=== PATIENT | female | born 1970 | race Caucasian/White ===

== ENCOUNTER 2017-05-13 08:48 | Emergency (ER) | payer OTHER ==
[~2017-05-13] VITALS: Wt 76.7 kg
[~2017-05-13 08:48] MED LIST: ANUSOL-HC25 MG R; BACTRIM DS 8001 TA1 PO; CLARITIN10 MG PO; DAYPRO600 M1 PO; FLEXERIL10 MG PO; HUMALOG 751 UNIT/0.0 SC; HUMALOG100 UNIT/2 SQ; HYDROCODONE BIT1 T11 PO; INVOKANA PO; JARDIANCE25 MG PO; K-TAB10 MEQ PO; KEFLEX500 MG PO; LEVEMIR100 U/ML SC; MACROBID100 M1 PO; MEDROL DOSEPAK4 MG PO; MOTRIN800 MG PO; Metformin Hydr500 MG PO; NORTRIPTYLINE10 MG PO; OSTERA TABLET1 EACH PO; PERCOCET 325 MG1 TA2 PO; PRAVACHOL40 MG PO; SYNTHROID0.15 MG PO; SYNTHROID0.175 MG PO; TOBRADEX 0.1%-0.5 ML OPH; TRESIBA FL100 UNIT/1 SQ; VICODIN ES 7501 TAB PO; VICTOZA6 MG/ML; VICTOZA6 MG/ML SC; ZOCOR10 MG PO; ZOLOFT100 MG PO; ZOLOFT50 MG PO; Zofran4 MG PO; [UNRECOGNIZED DRUG - OTHER]
[2017-05-13 09:08] VITALS: BP 122/86
[2017-05-13] MEDS ORDERED: CYCLOBENZAPRINE10 MG PO (11:06)
[2017-05-13] MEDS ORDERED: COLACE100 MG PO (11:06)
[2017-05-13] MEDS ORDERED: NAPROXEN500 M1 PO (11:06)
== END 2017-05-13 11:21 | disposition home or self-care (01) ==
LOC: ED 08:48
DX: K59.00 Constipation, unspecified (principal); M54.5 Low back pain; Z98.890 Other specified postprocedural states; Z88.6 Allergy status to analgesic agent; Z88.5 Allergy status to narcotic agent; Z79.899 Other long term (current) drug therapy; Z79.4 Long term (current) use of insulin

== ENCOUNTER 2018-07-02 10:14 | Inpatient (IN) | payer OTHER ==
[~2018-07-02] VITALS: Ht 172.7 cm; Wt 83.6 kg
--- NOTE | ~2018-07-02 | EKG ---
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
[2018-07-02 10:14] VITALS: BP 166/65
[~2018-07-02 10:14] MED LIST changes: +CHLORZOXAZONE500 M2 PO; +COLACE100 MG PO; +CYCLOBENZAPRINE10 MG PO; +NAPROSYN500 MG PO; +NAPROXEN500 M1 PO; +PREDNISONE20 M1 PO; +ROBAXIN500 M1 PO; +SYNTHROID,LEV175 MCG PO; -SYNTHROID0.15 MG PO
[2018-07-02 10:49] LABS: HEMATOCRIT 49.9 % (37.0-47.0); MEAN CELL VOLUME 89.7 fl (81.0-99.0); MEAN CORPUSCULAR HGB 28.8 pg (27.0-31.0); MEAN CORPUSCULAR HGB CONC 32.1 g/dl (33.0-37.0); MEAN PLATELET VOLUME 10.1 fl (9.6-12.3); PLATELET COUNT AUTOMATED 432 10*3/uL (130-400); RED BLOOD COUNT 5.56 10*6/uL (4.10-5.10); RED CELL DISTRI WIDTH 12.9 % (0-14.5); WHITE BLOOD COUNT 17.1 10*3/uL (4.8-10.8)
[2018-07-02 11:00] VITALS: BP 160/72
[2018-07-02 11:11] LABS: ALBUMIN 3.8 gm/dl (3.1-4.5); ALKALINE PHOSPHATASE 93 U/L (45-117); BUN 29 mg/dl (7-24); CHLORIDE 100 mmol/L (98-107); LIPASE 68 U/L (73-393); POTASSIUM 4.7 mmol/L (3.5-5.1); SGOT/AST 19 IU/L (3-35); SGPT/ALT 22 U/L (12-78); SODIUM 131 mmol/L (136-145); TOTAL PROTEIN 8.9 gm/dL (6.4-8.2)
[2018-07-02 11:15] LABS: TROPONIN I < 0.015 ng/ml (<0.045)
[2018-07-02 11:22] LABS: BURR CELLS FEW; PLATELET SUFFICIENCY HIGH (NORMAL); TOTAL CELLS COUNTED 100 #CELLS
[2018-07-02 11:26] LABS: BILIRUBIN NEGATIVE (NEGATIVE); BLOOD 2+ (NEGATIVE); CLARITY SL CLOUDY (CLEAR); COLOR YELLOW (YELLOW); GLUCOSE 3+ (NEGATIVE); KETONE 3+ (NEGATIVE); LEUKO ESTERASE NEGATIVE (NEGATIVE); NITRITE NEGATIVE (NEGATIVE); SPECIFIC GRAVITY >= 1.030 (1.005-1.030); UROBILINOGEN 0.2 E.U./dl (0.2-1.0)
[2018-07-02 11:43] LABS: ACT PARTIAL THROMBO TIME 45.6 SECONDS (20.8-31.5)
[2018-07-02 11:47] LABS: YEAST 2+
[2018-07-02 11:58] LABS: ABG HCO3 3.2 mmol/l (22-26); ABG O2 SATURATION 98.4 % (95-97); ARTERIAL BLOOD GAS PCO2 15.4 mmHg (35-45)
[2018-07-02 12:06] VITALS: BP 105/50; BP 164/70
[2018-07-02 12:07] LABS: ARTERIAL BLOOD GAS PH 6.943 (7.35-7.45)
[2018-07-02 13:12] VITALS: BP 144/73
--- NOTE | 2018-07-02 13:12 | NUR ---
A 47yr old female, admitted to ICCU, under the services of SPENCER Quintero DO with a diagnosis of DKA,PNEUMONITIS,LESIA,INFLUENZA A,SEPSIS. Chief complaint is Nausea and vomiting x 2 days, diagnosed with Flu A yesterday. Patient arrived via stretcher from ER. Monitor applied. Initial assessment completed. Vital signs taken and recorded. See assessment for past medical history, medications and allergies. Patient and/or family oriented to unit. [facility] ICCU visitation policy reviewed. Clothing/patient valuable form completed. Patient had 2 liters 0.9% Saline, Rocephin, Zithromax,Toradol, Tylenol and Zofran in ER. Acetone was positive with Anion Gap of 25. IV Humulin R 10 units given in ER. Dr Pizano has entered orders. RACHEL DAVALOS L
[2018-07-02] MEDS ORDERED: CO Q10100 MG PO (13:46)
[2018-07-02] MEDS ORDERED: INVOKAMET 50-51 EACH PO (13:47)
[2018-07-02] MEDS ORDERED: ATORVASTATIN CA20 M1 PO (13:47)
[2018-07-02] MEDS ORDERED: FISH OIL 1,0001 EAC4 PO (13:48)
[2018-07-02] MEDS ORDERED: VITAMIN D350000 UNIT PO (13:49)
[2018-07-02 13:52] LABS: ABG HCO3 3.1 mmol/l (22-26); ABG O2 SATURATION 98.2 % (95-97); ARTERIAL BLOOD GAS PCO2 14.6 mmHg (35-45)
[2018-07-02 13:55] LABS: ABG BASE EXCESS -29.7 mmol/L (-2.0-2.0); ARTERIAL BLOOD GAS PH 6.956 (7.35-7.45)
[2018-07-02 14:11] LABS: BUN 29 mg/dl (7-24); CHLORIDE 108 mmol/L (98-107); CREATININE 1.14 mg/dL (0.55-1.02); POTASSIUM 4.3 mmol/L (3.5-5.1); SODIUM 137 mmol/L (136-145)
--- NOTE | 2018-07-02 14:27 | NUR ---
IV FLUIDS WITH BICARB INITIATED AT 150/HR PER ORDER. BSBS 268. INSULIN DRIP STARTED AT 0.1U/KG/HR WHICH IS 8 UNITS/HR. PT IS RESTING EASILY WITH HER FACE COVERED WITH COOL CLOTH. DR WALLS WAS PRESENT IN ICCU/IMMEDIATELY AWARE WHEN CRITICAL VALUE PH OF 6.956 RECEIVED.
--- NOTE | 2018-07-02 15:07 | NUR ---
INSULIN DRIP INCREASED BY 1UNIT/HR TO 9 UNITS/HR FOR BSBS >150. NO EMESIS SINCE ADMISSION.
[2018-07-02 16:00] VITALS: BP 135/67
--- NOTE | 2018-07-02 17:15 | NUR ---
INSULIN DRIP DECREASED BY 50% TO 4UNITS/HR UNDER DIRECTION OF DR WALLS.
--- NOTE | 2018-07-02 17:58 | NUR ---
INSULIN DRIP TO 1 UNIT/HR FOR BSBS OF 89. DR WALLS AWARE. PT DENIES NEEDING ANYTHING FOR NAUSEA.
[2018-07-02 18:07] LABS: VENOUS BLOOD GAS O2 SAT 89.4 % (40-85); VENOUS PH 7.068 (7.32-7.43)
[2018-07-02 18:41] LABS: BUN 26 mg/dl (7-24); CHLORIDE 111 mmol/L (98-107); CREATININE 0.99 mg/dL (0.55-1.02); PHOSPHOROUS 2.6 mg/dL (2.5-4.9); POTASSIUM 3.8 mmol/L (3.5-5.1); SODIUM 141 mmol/L (136-145)
--- NOTE | 2018-07-02 19:21 | NUR ---
PT ATE ONE DIET JELLO AND A FEW BITES OF CHICKEN NOODLE SOUP, THEN CALLED ME INTO THE ROOM, MOANING/CRYING SAYING SHE'S NAUSTEATE. IV MARCEL GIVEN.
[2018-07-02 20:00] VITALS: BP 120/75
[2018-07-02 21:55] LABS: BUN 23 mg/dl (7-24); CHLORIDE 112 mmol/L (98-107); SODIUM 139 mmol/L (136-145)
[2018-07-02 22:01] LABS: POTASSIUM 4.9 mmol/L (3.5-5.1)
--- NOTE | 2018-07-02 23:59 | NUR ---
PATIENT GIVEN ONE TIME DOSE OF DILAUDID FOR BACK PAIN AND ALL OVER BODY ACHES. PATIENT HAS BEEN LAYING IN THE BED MOANING . WHEN ASKED WHAT WAS WRONG SHE SAID HER BACK HURT REAL BAD. DILAUDID THAT WAS GIVEN EARLIER WAS EFFECTIVE SO MORE GIVEN THIS TIME PATIENT IS RESTING NOW.
[2018-07-03] VITALS: BP 100/49
[2018-07-03 02:28] LABS: ABG BASE EXCESS -22.9 mmol/L (-2.0-2.0); ABG HCO3 5.9 mmol/l (22-26); ABG O2 SATURATION 98.7 % (95-97); ARTERIAL BLOOD GAS PCO2 19.6 mmHg (35-45)
[2018-07-03 02:37] LABS: ARTERIAL BLOOD GAS PH 7.11 (7.35-7.45)
[2018-07-03 03:09] LABS: BUN 20 mg/dl (7-24); CHLORIDE 110 mmol/L (98-107); CREATININE 1.13 mg/dL (0.55-1.02); POTASSIUM 4.7 mmol/L (3.5-5.1); SODIUM 138 mmol/L (136-145)
[2018-07-03 03:59] VITALS: BP 128/66
[2018-07-03 06:24] LABS: ALBUMIN 3.3 gm/dl (3.1-4.5); BUN 17 mg/dl (7-24); CHLORIDE 110 mmol/L (98-107); PHOSPHOROUS 1.7 mg/dL (2.5-4.9); POTASSIUM 3.9 mmol/L (3.5-5.1); SGOT/AST 16 IU/L (3-35); SODIUM 137 mmol/L (136-145)
[2018-07-03 06:25] LABS: ACT PARTIAL THROMBO TIME 30.3 SECONDS (20.8-31.5); INTERNATIONAL NORM RATIO 0.9 (2.0-3.5)
[2018-07-03 06:30] LABS: ALKALINE PHOSPHATASE 72 U/L (45-117); CHOLESTEROL 220 mg/dL (<200); CREATININE 1.06 mg/dL (0.55-1.02); HDL CHOLESTEROL 33 mg/dl (40-60); LDL CHOLESTEROL 135 mg/dL (9-159); SGPT/ALT 14 U/L (12-78); THYROID STIM HORMONE (HS) 0.695 uIU/ml (0.358-4.75); TOTAL PROTEIN 7.7 gm/dL (6.4-8.2); TRIGLYCERIDES 262 mg/dl (<150); VLDL CHOLESTEROL 52 mg/dL (6-40)
[2018-07-03 06:40] LABS: BASO # 0.1 10*3/uL (0.0-0.1); BASO % 0.7 % (0.0-1.0); HEMATOCRIT 44.2 % (37.0-47.0); HEMOGLOBIN 14.8 g/dl (12.0-16.0); LYMPH # 1.9 10*3/uL (1.3-4.4); LYMPH % 12.6 % (27.0-41.0); MEAN CELL VOLUME 87.2 fl (81.0-99.0); MEAN CORPUSCULAR HGB 29.2 pg (27.0-31.0); MEAN CORPUSCULAR HGB CONC 33.5 g/dl (33.0-37.0); MEAN PLATELET VOLUME 9.8 fl (9.6-12.3); MONO # 1.4 10*3/uL (0.1-1.0); MONO % 9.2 % (3.0-9.0); NEUT # 10.4 10*3/uL (2.3-7.9); NEUT % 68.4 % (47.0-73.0); RED BLOOD COUNT 5.07 10*6/uL (4.10-5.10); RED CELL DISTRI WIDTH 13.4 % (0-14.5); WHITE BLOOD COUNT 15.2 10*3/uL (4.8-10.8)
[2018-07-03 06:41] LABS: PLATELET COUNT AUTOMATED 319 10*3/uL (130-400)
--- NOTE | 2018-07-03 07:12 | NUR ---
Shift chart check completed.24 HR chart check completed.
[2018-07-03 07:58] LABS: TOTAL CELLS COUNTED 100 #CELLS
[2018-07-03 07:59] LABS: PLATELET SUFFICIENCY NORMAL (NORMAL)
[2018-07-03 08:00] VITALS: BP 118/80
[2018-07-03 08:51] LABS: VITAMIN D, 25-HYDROXY 23.9 ng/mL (30-100)
--- NOTE | 2018-07-03 09:00 | NUR ---
Rn Invasive in to talk to patient. Patient states lives at home with her sister and children. There are "lots" steps in the home. Physician: Dr. Soledad Camacho Pharmacy: [facility] Home health services: none Patient's level of ADLs: INDEPENDENT Patient has working utilities: yes DME: none Follow-up physician's appointment after d/c: will be made by the hospitalist nurse director upon discharge Does patient want to access PORTAL?: no Discharge plan discussed with patient. She lives at home with her sister and children. She is independent in her ADLs and ambulation. Discussed home health care services and she denies any home needs at this time. When medically stable she will be discharged to home. SHAMEKA PAIGE
[2018-07-03 10:17] LABS: BUN 15 mg/dl (7-24); CHLORIDE 114 mmol/L (98-107); CREATININE 0.93 mg/dL (0.55-1.02); POTASSIUM 4.5 mmol/L (3.5-5.1); SODIUM 137 mmol/L (136-145)
--- NOTE | 2018-07-03 10:33 | NUR ---
NORCO FOR GENERALIZED ACHES/PAIN. TAKING POPSICLE.
--- NOTE | 2018-07-03 10:58 | NUR ---
ON ASSESSMENT THIS AM PT ORIENTED, BUT LISTLESS. IV FLUIDS CONTINUED. KPHOS SUPPLEMENT WAS ADDED. INSULIN DRIP AT 3 UNITS/HR. BSBS HOURLY HAVE CONTINUED. SHE HAS NOT HAD ANY EMESIS THIS SHIFT "BUT I'M AFRAID TO DRINK MUCH". SHE HAS TAKEN AND RETAINED A POPSICLE. SHE GETS UP AND DOWN TO BSC TO VOID. HER IV IN RT UPPER ARM HAS INFILTRATED AND BEEN REMOVED. SEE ALL APPROPRIATE INTERVENTIONS.
--- NOTE | 2018-07-03 11:20 | NUR ---
RESTING QUIETLY, NO MOANING, STILL HAS A COOL CLOTH ON HER FOREHEAD SINCE EARLIER NORCO. HER FACE FLUSHED. DID CHECK A RECTAL TEMP 99.0.
--- NOTE | 2018-07-03 13:12 | NUR ---
PT HAS TAKEN AND RETAINED ANOTHER 1/2 POPSICLE. SHE DECLINES WANTING TO TRY ANYTHING ELSE TO EAT.
--- NOTE | 2018-07-03 14:22 | NUR ---
DR YANES HAS VISITED. INSULIN DRIP CONTINUES AT 3UNITS/HR. NO EMESIS THIS SHIFT.
[2018-07-03 14:48] LABS: BUN 13 mg/dl (7-24); CHLORIDE 113 mmol/L (98-107); CREATININE 0.88 mg/dL (0.55-1.02); POTASSIUM 3.8 mmol/L (3.5-5.1); SODIUM 141 mmol/L (136-145)
--- NOTE | 2018-07-03 15:20 | NUR ---
INSULIN DRIP DECREASED TO 2 UNITS/HR FOR BSBS OF 127. DR EDGAR AWARE. OFFERED PT MORE POPSICLES, ANYTHING ELSE, BUT SHE DECLINES.
[2018-07-03 16:00] VITALS: BP 111/66
[2018-07-03 18:54] LABS: BUN 12 mg/dl (7-24); CHLORIDE 114 mmol/L (98-107); CREATININE 0.91 mg/dL (0.55-1.02); POTASSIUM 3.6 mmol/L (3.5-5.1); SODIUM 142 mmol/L (136-145)
[2018-07-03 20:00] VITALS: BP 121/70
[2018-07-03 22:54] VITALS: BP 117/68
--- NOTE | 2018-07-03 22:54 | NUR ---
A 47, admitted to ICCU, under the services of SPENCER Quintero DO with a diagnosis of SUICIDE ATTEMPT BY OTHER PSYCHOTROPIC DRUGS OVERDOSE INTENTIAL. Chief complaint is WANTS TO . Patient arrived via wheel chair from ER. Monitor applied. Initial assessment completed. Vital signs taken and recorded. SPENCER QUINTERO DO notified of admission to the unit. Orders received. See assessment for past medical history, medications and allergies. Patient and/or family oriented to unit. [facility] ICCU visitation policy reviewed. Clothing/patient valuable form completed. DAYNE MIKE
[2018-07-03 23:15] LABS: BUN 11 mg/dl (7-24); CHLORIDE 115 mmol/L (98-107); CREATININE 0.81 mg/dL (0.55-1.02); POTASSIUM 4.4 mmol/L (3.5-5.1); SODIUM 142 mmol/L (136-145)
--- NOTE | 2018-07-04 | NUR ---
Patient resting quietly with no c/o discomfort. Respirations easy and regular. Vital signs stable. No overt distress. MIKHAIL PICKETT
[2018-07-04 03:11] LABS: BUN 9 mg/dl (7-24); CHLORIDE 114 mmol/L (98-107); CREATININE 0.74 mg/dL (0.55-1.02); SODIUM 143 mmol/L (136-145)
[2018-07-04 03:12] LABS: POTASSIUM 3.3 mmol/L (3.5-5.1)
[2018-07-04 04:00] VITALS: BP 115/70
--- NOTE | 2018-07-04 04:06 | NUR ---
24 HR chart check completed.
--- NOTE | 2018-07-04 04:07 | NUR ---
Patient resting quietly with no c/o discomfort. Respirations easy and regular. Vital signs stable. No overt distress. MIKHAIL PICKETT
[2018-07-04 06:08] LABS: BUN 9 mg/dl (7-24); CHLORIDE 113 mmol/L (98-107); POTASSIUM 3.4 mmol/L (3.5-5.1); SODIUM 143 mmol/L (136-145)
[2018-07-04 06:19] LABS: PHOSPHOROUS 0.8 mg/dL (2.5-4.9)
[2018-07-04 06:32] LABS: MEAN CORPUSCULAR HGB CONC 33.5 g/dl (33.0-37.0); MEAN PLATELET VOLUME 9.7 fl (9.6-12.3); PLATELET COUNT AUTOMATED 241 10*3/uL (130-400); RED BLOOD COUNT 4.53 10*6/uL (4.10-5.10); RED CELL DISTRI WIDTH 13.7 % (0-14.5)
[2018-07-04 06:37] LABS: HEMATOCRIT 37.9 % (37.0-47.0); HEMOGLOBIN 12.7 g/dl (12.0-16.0); MEAN CELL VOLUME 83.7 fl (81.0-99.0)
[2018-07-04 07:36] LABS: BURR CELLS FEW; PLATELET SUFFICIENCY NORMAL (NORMAL); TOTAL CELLS COUNTED 100 #CELLS
[2018-07-04 08:00] VITALS: BP 112/76
--- NOTE | 2018-07-04 08:15 | NUR ---
ZOFRAN GIVEN PER PT REQUEST FOR NAUSEA. CALL LIGHT WITHIN REACH. WILL CONTINUE TO MONITOR AND REASSESS.
--- NOTE | 2018-07-04 09:00 | NUR ---
DR. WINSTON IN TO SEE PATIENT AND DISCUSS PLAN OF CARE.
--- NOTE | 2018-07-04 09:15 | NUR ---
MEDICATION EFFECTIVE. PATIENT REPORTS NO LONGER FEELING NAUSEOUS AT THIS TIME.
--- NOTE | 2018-07-04 11:40 | NUR ---
SPOKE WITH DR. WINSTON ABOUT INSULIN DRIP NOT HAVING A TITRATION ORDER SET. PATIENT HYPERGLYCEMIC AFTER TWO CONSECUTIVE BLOOD GLUCOSE CHECKS. ORDERS RECEIVED.
[2018-07-04 12:00] VITALS: BP 124/75
[2018-07-04 15:00] LABS: BUN 9 mg/dl (7-24); CHLORIDE 112 mmol/L (98-107); CREATININE 0.69 mg/dL (0.55-1.02); PHOSPHOROUS 3.4 mg/dL (2.5-4.9); POTASSIUM 3.9 mmol/L (3.5-5.1); SODIUM 141 mmol/L (136-145)
--- NOTE | 2018-07-04 15:11 | NUR ---
spoke with dr. friedman regarding glucose management. orders received.
[2018-07-04 16:00] VITALS: BP 115/49
--- NOTE | 2018-07-04 17:30 | NUR ---
INSULIN DRIP DISCONTINUED AT THIS TIME.
[2018-07-04 20:00] VITALS: BP 129/63
--- NOTE | 2018-07-04 20:07 | NUR ---
PT. RESTING IN BED WATCHING TV. STATES SHE FEELS "MUCH" BETTER. HEP LOCK IN RA AND MARTY ASYMPT. LUNGS CLEAR BILAT, PULSE OX 97% ON RA. ABDOMEN SOFAT ,NONDISTENDED AND NORMO. TRACE BLE EDEMA. KNEE HIGH LM HOSE ON BILAT. RESP. EASY IAND REG ,NO DISTRESS. UP TO RR AD KATY, AMBULATORY IN ROOM, GAIT STEADY. LILA TOLEDO RN
--- NOTE | 2018-07-04 20:53 | NUR ---
PT. REFUSED TO BE SET UP FOR A BATH THIS EVENING, WANTS TO WAIT UNTIL TOMORROW AM.
[2018-07-05] VITALS: BP 127/71
--- NOTE | 2018-07-05 00:21 | NUR ---
NORCO GIVEN AT 0000 FOR COMPLAINTS OF LEG CRAMPS AND INABILILTY TO SLEEP. CURRENTLY SLEEPING, NORCO EFFECTIVE. LILA TOLEDO RN
[2018-07-05 04:00] VITALS: BP 124/60
--- NOTE | 2018-07-05 04:38 | NUR ---
24 HR chart check completed.
[2018-07-05 06:16] LABS: BASO % 0.6 % (0.0-1.0); EOS % 0.4 % (1.0-4.0); HEMATOCRIT 37.1 % (37.0-47.0); HEMOGLOBIN 12.8 g/dl (12.0-16.0); LYMPH # 2.9 10*3/uL (1.3-4.4); MEAN CELL VOLUME 83.9 fl (81.0-99.0); MEAN CORPUSCULAR HGB CONC 34.5 g/dl (33.0-37.0); MEAN PLATELET VOLUME 9.2 fl (9.6-12.3); MONO # 0.6 10*3/uL (0.1-1.0); MONO % 12.2 % (3.0-9.0); NEUT # 1.2 10*3/uL (2.3-7.9); NEUT % 24.1 % (47.0-73.0); PLATELET COUNT AUTOMATED 204 10*3/uL (130-400); RED BLOOD COUNT 4.42 10*6/uL (4.10-5.10); RED CELL DISTRI WIDTH 13.2 % (0-14.5); WHITE BLOOD COUNT 4.8 10*3/uL (4.8-10.8)
[2018-07-05 06:28] LABS: BUN 9 mg/dl (7-24); CHLORIDE 106 mmol/L (98-107); CREATININE 0.45 mg/dL (0.55-1.02); PHOSPHOROUS 2.5 mg/dL (2.5-4.9); POTASSIUM 3.8 mmol/L (3.5-5.1); SODIUM 142 mmol/L (136-145)
[2018-07-05 08:00] VITALS: BP 109/73
--- NOTE | 2018-07-05 08:34 | NUR ---
Awakened for VS. States. " I feel so much better, but I didn't get any sleep last night , that beeping " . Discussed possible discharge.
--- NOTE | 2018-07-05 10:43 | NUR ---
Removing monitor frequently for trips to the BR.. No c/o.
[2018-07-05] MEDS ORDERED: TRESIBA FL100 UNIT/1 SQ (11:08)
[2018-07-05] MEDS ORDERED: TAMIFLU 75MG CA75 MG PO (11:10)
--- NOTE | 2018-07-05 13:19 | NUR ---
Dr. Rae in early AM. Order for discharge recieved. Took lunch well. HL x 2 Removed. Discharge instruction given , Voiced understanding, Discharged to home.
== END 2018-07-05 13:19 | disposition home or self-care (01) | DRG 871 ==
LOC: ED 10:14 → ICCU 12:00 → EDHOLD 12:00 → ICCU 12:21
PROVIDERS: Internal Medicine; Nurse Practitioner Family; Student in an Organized Health Care Education/Training Program; ADMIT Internal Medicine
DX: A41.9 Sepsis, unspecified organism (principal); E11.10 Type 2 diabetes mellitus with ketoacidosis without coma; N17.0 Acute kidney failure with tubular necrosis; J10.00 Influenza due to other identified influenza virus with unspecified type of pneumonia; E03.9 Hypothyroidism, unspecified; M54.30 Sciatica, unspecified side; J10.1 Influenza due to other identified influenza virus with other respiratory manifestations; E83.41 Hypermagnesemia; R80.0 Isolated proteinuria; R82.4 Acetonuria; R31.21 Asymptomatic microscopic hematuria; E83.39 Other disorders of phosphorus metabolism; E66.3 Overweight; E78.5 Hyperlipidemia, unspecified; F32.9 Major depressive disorder, single episode, unspecified; R65.20 Severe sepsis without septic shock; E83.51 Hypocalcemia; Z98.891 History of uterine scar from previous surgery; Z82.49 Family history of ischemic heart disease and other diseases of the circulatory system; Z83.3 Family history of diabetes mellitus; Z79.84 Long term (current) use of oral hypoglycemic drugs; Z79.4 Long term (current) use of insulin; Z68.28 Body mass index [BMI] 28.0-28.9, adult

== ENCOUNTER → 2019-01-06 | Outpatient (CLI) | payer OTHER ==
[~2019-01-06] MED LIST changes: +ATORVASTATIN CA20 M1 PO; +CO Q10100 MG PO; +FISH OIL 1,0001 EAC4 PO; +INVOKAMET 50-51 EACH PO; +TAMIFLU 75MG CA75 MG PO; +VITAMIN D350000 UNIT PO
[2019-01-06 08:31] LABS: ALBUMIN 3.9 gm/dl (3.1-4.5); BUN 11 mg/dl (7-24); CHLORIDE 105 mmol/L (98-107); CHOLESTEROL 263 mg/dL (<200); CREATININE 0.71 mg/dL (0.55-1.02); SGOT/AST 11 IU/L (3-35); SODIUM 137 mmol/L (136-145); TRIGLYCERIDES 134 mg/dl (<150); VLDL CHOLESTEROL 27 mg/dL (6-40)
[2019-01-06 08:38] LABS: ALKALINE PHOSPHATASE 60 U/L (45-117); FREE T4 1.05 ng/dl (0.76-1.46); HDL CHOLESTEROL 46 mg/dl (40-60); LDL CHOLESTEROL 190 mg/dL (9-159); SGPT/ALT 15 U/L (12-78); TOTAL PROTEIN 7.8 gm/dL (6.4-8.2)
[2019-01-07 11:07] LABS: CREATININE,URINE 69.6 mg/dL (Not Estab.); MICRO ALBUMIN/CRE RATIO <4.3 (0.0-30.0)
[2019-01-07 15:08] LABS: t-TRANSGLUTAMINASE (tTG) IGA <2 U/mL (0-3)
== END | disposition home or self-care (01) ==
LOC: LAB 07:33
PROVIDERS: Internal Medicine Endocrinology, Diabetes & Metabolism
DX: E55.9 Vitamin D deficiency, unspecified (principal); E03.9 Hypothyroidism, unspecified; E13.9 Other specified diabetes mellitus without complications; R14.0 Abdominal distension (gaseous)

== ENCOUNTER 2019-01-14 19:20 | Emergency (ER) | payer OTHER ==
[~2019-01-14] VITALS: Ht 172.7 cm; Wt 86.2 kg
[2019-01-14 19:23] VITALS: BP 119/75
[2019-01-14] MEDS ORDERED: CEFADROXIL500 M1 PO (20:09)
== END 2019-01-14 20:52 | disposition home or self-care (01) ==
LOC: ED 19:20
DX: T25.212A Burn of second degree of left ankle, initial encounter (principal); E11.9 Type 2 diabetes mellitus without complications; Z79.4 Long term (current) use of insulin; Z79.899 Other long term (current) drug therapy; X10.1XXA Contact with hot food, initial encounter; Y93.89 Activity, other specified; Y92.89 Other specified places as the place of occurrence of the external cause; Y99.8 Other external cause status

== ENCOUNTER → 2019-03-23 | Outpatient (CLI) | payer OTHER ==
[~2019-03-23] MED LIST changes: +CEFADROXIL500 M1 PO
== END | disposition home or self-care (01) ==
LOC: RAD 14:47
DX: M51.36 Other intervertebral disc degeneration, lumbar region (principal); M75.42 Impingement syndrome of left shoulder

== ENCOUNTER → 2019-06-08 | Outpatient (CLI) | payer OTHER | END | disposition home or self-care (01) | LOC: MAMMO 15:30 | DX: Z12.31 Encounter for screening mammogram for malignant neoplasm of breast (principal); F41.9 Anxiety disorder, unspecified ==

== ENCOUNTER → 2020-03-02 | Outpatient (CLI) | payer OTHER ==
[~2020-03-02] MED LIST changes: +ASPIRIN ADULT L81 M1 PO; +BRILINTA90 M1 PO; +CARVEDILOL6.25 MG PO; +HUMALOG PUMP; +LISINOPRIL5 MG PO; +LORAZEPAM0.5 MG PO; +NITROFURANTOIN100 M9 PO; +OZEMPIC1 MG/0.75 SQ; -SYNTHROID,LEV175 MCG PO; +Synthroid,Lev150 MCG PO
== END | disposition home or self-care (01) ==
LOC: CARD 04:50
PROVIDERS: ATTEND Physician Assistant
DX: R07.9 Chest pain, unspecified (principal)

== ENCOUNTER 2020-03-22 11:21 | Emergency (ER) | payer OTHER ==
[~2020-03-22] VITALS: Ht 172.7 cm; Wt 95.3 kg
[~2020-03-22 11:21] MED LIST changes: -ASPIRIN ADULT L81 M1 PO; -BRILINTA90 M1 PO; -CARVEDILOL6.25 MG PO; -LISINOPRIL5 MG PO; -NITROFURANTOIN100 M9 PO
[2020-03-22] MEDS ORDERED: CARVEDILOL6.25 MG PO (11:41)
[2020-03-22] MEDS ORDERED: ASPIRIN ADULT L81 M1 PO (11:41)
[2020-03-22] MEDS ORDERED: BRILINTA90 M1 PO (11:41)
[2020-03-22] MEDS ORDERED: NITROFURANTOIN100 M9 PO (11:42)
[2020-03-22] MEDS ORDERED: LISINOPRIL5 MG PO (11:42)
[2020-03-22 11:52] LABS: BASO % 0.4 % (0.0-1.0); EOS # 0.2 10*3/uL (0.0-0.4); HEMATOCRIT 40.1 % (37.0-47.0); LYMPH # 2.4 10*3/uL (1.3-4.4); LYMPH % 21.7 % (27.0-41.0); MEAN CELL VOLUME 85.5 fl (81.0-99.0); MEAN CORPUSCULAR HGB CONC 33.9 g/dl (33.0-37.0); MEAN PLATELET VOLUME 10.1 fl (9.6-12.3); MONO % 8.4 % (3.0-9.0); NEUT # 7.5 10*3/uL (2.3-7.9); NEUT % 66.8 % (47.0-73.0); PLATELET COUNT AUTOMATED 293 10*3/uL (130-400); RED BLOOD COUNT 4.69 10*6/uL (4.10-5.10); WHITE BLOOD COUNT 11.3 10*3/uL (4.8-10.8)
[2020-03-22 12:03] LABS: ACT PARTIAL THROMBO TIME 25.1 SECONDS (20.0-32.1); INTERNATIONAL NORM RATIO 0.9 (2.0-3.5)
[2020-03-22 12:11] LABS: ALBUMIN 3.5 gm/dl (3.1-4.5); ALKALINE PHOSPHATASE 59 U/L (45-117); BUN 15 mg/dl (7-24); CHLORIDE 106 mmol/L (98-107); CREATININE 0.61 mg/dL (0.55-1.02); POTASSIUM 4.2 mmol/L (3.5-5.1); SGOT/AST 22 IU/L (3-35); SGPT/ALT 16 U/L (12-78); SODIUM 137 mmol/L (136-145); TOTAL PROTEIN 7.3 gm/dL (6.4-8.2)
[2020-03-22 12:17] LABS: TROPONIN I < 0.015 ng/ml (<0.045)
[2020-03-22 13:14] VITALS: BP 132/44
== END 2020-03-22 15:40 | disposition home or self-care (01) ==
LOC: ED 11:21
PROVIDERS: Emergency Medicine
DX: R07.9 Chest pain, unspecified (principal); Z79.899 Other long term (current) drug therapy

== ENCOUNTER → 2020-09-14 | Outpatient (CLI) | payer OTHER ==
[~2020-09-14] MED LIST changes: +ASPIRIN ADULT L81 M1 PO; +BRILINTA90 M1 PO; +CARVEDILOL6.25 MG PO; +LISINOPRIL5 MG PO; +NITROFURANTOIN100 M9 PO
== END | disposition home or self-care (01) ==
LOC: CT 01:47
PROVIDERS: ATTEND Internal Medicine Endocrinology, Diabetes & Metabolism
DX: E27.9 Disorder of adrenal gland, unspecified (principal); E13.9 Other specified diabetes mellitus without complications; I25.10 Atherosclerotic heart disease of native coronary artery without angina pectoris

== ENCOUNTER 2021-01-04 17:01 | Emergency (ER) | payer OTHER ==
[~2021-01-04] VITALS: Ht 170.1 cm; Wt 93.4 kg
[2021-01-04 17:18] VITALS: BP 135/78
[2021-01-04 17:53] LABS: BASO % 0.4 % (0.0-1.0); EOS # 0.2 10*3/uL (0.0-0.4); EOS % 2.2 % (1.0-4.0); HEMATOCRIT 39.6 % (37.0-47.0); LYMPH # 3.4 10*3/uL (1.3-4.4); LYMPH % 32.3 % (27.0-41.0); MEAN CELL VOLUME 84.1 fl (81.0-99.0); MEAN CORPUSCULAR HGB 28.9 pg (27.0-31.0); MEAN CORPUSCULAR HGB CONC 34.3 g/dl (33.0-37.0); MEAN PLATELET VOLUME 10.4 fl (9.6-12.3); MONO # 1.1 10*3/uL (0.1-1.0); MONO % 10.8 % (3.0-9.0); NEUT # 5.7 10*3/uL (2.3-7.9); NEUT % 53.7 % (47.0-73.0); PLATELET COUNT AUTOMATED 293 10*3/uL (130-400); RED BLOOD COUNT 4.71 10*6/uL (4.10-5.10); RED CELL DISTRI WIDTH 12.4 % (0-14.5); WHITE BLOOD COUNT 10.5 10*3/uL (4.8-10.8)
[2021-01-04 18:14] LABS: ALBUMIN 3.2 gm/dl (3.1-4.5); ALKALINE PHOSPHATASE 62 U/L (45-117); BUN 13 mg/dl (7-24); CHLORIDE 107 mmol/L (98-107); CREATININE 0.62 mg/dL (0.55-1.02); POTASSIUM 3.7 mmol/L (3.5-5.1); SGOT/AST 9 IU/L (3-35); SGPT/ALT 19 U/L (12-78); SODIUM 139 mmol/L (136-145); TOTAL PROTEIN 7.1 gm/dL (6.4-8.2)
[2021-01-04 18:15] LABS: TROPONIN I < 0.015 ng/ml (<0.045)
== END 2021-01-04 19:24 | disposition home or self-care (01) ==
LOC: ED 17:01
PROVIDERS: Student in an Organized Health Care Education/Training Program
DX: H53.8 Other visual disturbances (principal); R20.0 Anesthesia of skin; Z79.899 Other long term (current) drug therapy; Z79.82 Long term (current) use of aspirin

== ENCOUNTER → 2021-10-24 | Outpatient (CLI) | payer OTHER ==
[2021-10-24 17:38] LABS: HEMATOCRIT 43.7 % (37.0-47.0); MEAN CELL VOLUME 85.9 fl (81.0-99.0); MEAN CORPUSCULAR HGB 27.5 pg (27.0-31.0); MEAN PLATELET VOLUME 10.7 fl (9.6-12.3); RED BLOOD COUNT 5.09 10*6/uL (4.10-5.10); RED CELL DISTRI WIDTH 12.9 % (0-14.5); WHITE BLOOD COUNT 10.5 10*3/uL (4.8-10.8)
[2021-10-24 17:55] LABS: ALKALINE PHOSPHATASE 48 U/L (45-117); BUN 9 mg/dl (7-24); CHLORIDE 109 mmol/L (98-107); CHOLESTEROL 148 mg/dL (<200); CREATININE 0.69 mg/dL (0.55-1.02); LDL CHOLESTEROL 76 mg/dL (9-159); POTASSIUM 3.9 mmol/L (3.5-5.1); SGOT/AST 10 IU/L (3-35); SGPT/ALT 11 U/L (12-78); SODIUM 141 mmol/L (136-145); TOTAL PROTEIN 6.9 gm/dL (6.4-8.2); TRIGLYCERIDES 164 mg/dl (<150)
[2021-10-24 18:57] LABS: FREE T4 0.86 ng/dl (0.76-1.46)
== END | disposition home or self-care (01) ==
LOC: LAB 16:54
PROVIDERS: ATTEND Physician Assistant
DX: I11.9 Hypertensive heart disease without heart failure (principal); I25.10 Atherosclerotic heart disease of native coronary artery without angina pectoris; E11.9 Type 2 diabetes mellitus without complications; E03.9 Hypothyroidism, unspecified

== ENCOUNTER 2022-06-24 16:15 | Emergency (ER) | payer OTHER ==
[~2022-06-24] VITALS: Ht 170.1 cm; Wt 86.2 kg
[2022-06-24 16:36] VITALS: BP 113/99
[2022-06-24 16:46] LABS: BASO % 0.4 % (0.0-1.0); EOS # 0.2 10*3/uL (0.0-0.4); EOS % 1.9 % (1.0-4.0); HEMATOCRIT 44.9 % (37.0-47.0); LYMPH # 2.8 10*3/uL (1.3-4.4); MEAN CELL VOLUME 85.9 fl (81.0-99.0); MEAN CORPUSCULAR HGB 29.1 pg (27.0-31.0); MEAN CORPUSCULAR HGB CONC 33.9 g/dl (33.0-37.0); MEAN PLATELET VOLUME 9.9 fl (9.6-12.3); MONO # 1.1 10*3/uL (0.1-1.0); MONO % 9.7 % (3.0-9.0); NEUT # 7.1 10*3/uL (2.3-7.9); NEUT % 62.6 % (47.0-73.0); PLATELET COUNT AUTOMATED 287 10*3/uL (130-400); RED BLOOD COUNT 5.23 10*6/uL (4.10-5.10); RED CELL DISTRI WIDTH 12.6 % (0-14.5); WHITE BLOOD COUNT 11.3 10*3/uL (4.8-10.8)
[2022-06-24 16:59] LABS: ACT PARTIAL THROMBO TIME 26.4 SECONDS (20.0-32.1)
[2022-06-24 17:01] LABS: ALKALINE PHOSPHATASE 50 U/L (46-116); BUN 12 mg/dl (9-23); CHLORIDE 104 mmol/L (98-107); SGPT/ALT 20 U/L (10-49); TOTAL PROTEIN 7.3 gm/dL (6.0-8.0)
== END 2022-06-24 18:31 | disposition home or self-care (01) ==
LOC: ED 16:15
PROVIDERS: Internal Medicine
DX: R07.89 Other chest pain (principal); E11.9 Type 2 diabetes mellitus without complications; Z79.4 Long term (current) use of insulin; F32.A Depression, unspecified; F41.9 Anxiety disorder, unspecified; Z98.890 Other specified postprocedural states

== ENCOUNTER → 2022-09-06 | Outpatient (CLI) | payer OTHER ==
[2022-09-06 09:32] LABS: URINE CREATININE RANDOM 120.06 mg/dL
[2022-09-06 09:46] LABS: ALKALINE PHOSPHATASE 55 U/L (46-116); BUN 11 mg/dl (9-23); CHLORIDE 107 mmol/L (98-107); CHOLESTEROL 193 mg/dL (<200); FREE T4 1.07 ng/dl (0.89-1.76); LDL CHOLESTEROL 131 mg/dL (9-159); POTASSIUM 4.1 mmol/L (3.4-5.1); THYROID STIM HORMONE (HS) 1.661 uIU/ml (0.550-4.780); TOTAL PROTEIN 7.4 gm/dL (6.0-8.0); TRIGLYCERIDES 100 mg/dl (<150)
[2022-09-06 09:51] LABS: SGPT/ALT < 7 U/L (10-49)
== END | disposition home or self-care (01) ==
LOC: LAB 08:34
PROVIDERS: ATTEND Nurse Practitioner Family
DX: E11.65 Type 2 diabetes mellitus with hyperglycemia (principal); E03.9 Hypothyroidism, unspecified; E55.9 Vitamin D deficiency, unspecified; Z79.4 Long term (current) use of insulin

== ENCOUNTER → 2022-09-23 | Outpatient (CLI) | payer OTHER | END | disposition home or self-care (01) | LOC: MAMMO 07:56 | PROVIDERS: ATTEND Physician Assistant | DX: Z12.31 Encounter for screening mammogram for malignant neoplasm of breast (principal) ==

== ENCOUNTER → 2022-10-03 | Day surgery (SDC) | payer OTHER ==
[~2022-10-03] MED LIST changes: +CARAFATE1 G1 PO; +FAMOTIDINE20 M1 PO; +FARXIGA10 M1 PO; +METFORMIN XR500 MG PO; +PROTONIX40 MG PO
[2022-10-03 07:25] VITALS: BP 127/59
[2022-10-03 09:22] VITALS: BP 79/32
[2022-10-03 09:37] VITALS: BP 90/44
[2022-10-03 09:50] VITALS: BP 100/57
== END ==
LOC: SDC 10-01 11:00
PROVIDERS: ATTEND Surgery
DX: K92.1 Melena (principal); K29.50 Unspecified chronic gastritis without bleeding; R19.7 Diarrhea, unspecified; R10.9 Unspecified abdominal pain; E11.9 Type 2 diabetes mellitus without complications; I10 Essential (primary) hypertension; E78.00 Pure hypercholesterolemia, unspecified; F41.9 Anxiety disorder, unspecified; F32.A Depression, unspecified; E03.9 Hypothyroidism, unspecified; K64.8 Other hemorrhoids; K63.5 Polyp of colon; Z90.710 Acquired absence of both cervix and uterus; Z98.890 Other specified postprocedural states; Z79.899 Other long term (current) drug therapy

== ENCOUNTER → 2022-10-10 | Outpatient (CLI) | payer OTHER | END | disposition home or self-care (01) | LOC: US 01:56 | PROVIDERS: ATTEND Surgery | DX: K92.1 Melena (principal); R19.7 Diarrhea, unspecified; R10.9 Unspecified abdominal pain ==

== ENCOUNTER 2022-10-20 18:45 | Emergency (ER) | payer OTHER ==
[~2022-10-20] VITALS: Ht 172.7 cm; Wt 83.9 kg
[2022-10-20 19:17] LABS: BASO % 0.3 % (0.0-1.0); EOS % 0.5 % (1.0-4.0); HEMATOCRIT 44.2 % (37.0-47.0); LYMPH # 0.5 10*3/uL (1.3-4.4); LYMPH % 6.2 % (27.0-41.0); MEAN CELL VOLUME 84.8 fl (81.0-99.0); MEAN CORPUSCULAR HGB CONC 34.2 g/dl (33.0-37.0); MEAN PLATELET VOLUME 9.9 fl (9.6-12.3); MONO # 0.7 10*3/uL (0.1-1.0); MONO % 9.7 % (3.0-9.0); NEUT # 6.3 10*3/uL (2.3-7.9); PLATELET COUNT AUTOMATED 249 10*3/uL (130-400); RED BLOOD COUNT 5.21 10*6/uL (4.10-5.10); RED CELL DISTRI WIDTH 13.3 % (0-14.5); WHITE BLOOD COUNT 7.6 10*3/uL (4.8-10.8)
[2022-10-20 19:40] LABS: ALKALINE PHOSPHATASE 52 U/L (46-116); BUN 8 mg/dl (9-23); CHLORIDE 105 mmol/L (98-107); POTASSIUM 3.7 mmol/L (3.4-5.1); SGPT/ALT 12 U/L (10-49); TOTAL PROTEIN 6.8 gm/dL (6.0-8.0)
[2022-10-20 19:44] LABS: BILIRUBIN Negative (Negative); BLOOD Negative (Negative); CLARITY Turbid (Clear); COLOR Dark Yellow (Yellow); GLUCOSE 3+ (Negative); KETONE 1+ (Negative); LEUKO ESTERASE 2+ (Negative); NITRITE Negative (Negative); PH 5.5 (4.5-8.0); SPECIFIC GRAVITY >= 1.030 (1.001-1.030)
[2022-10-20 20:22] LABS: BACTERIA 1+; EPITHELIAL CELLS 16-20; MUCOUS 2+
[2022-10-20 22:04] VITALS: BP 128/63
[2022-10-20] MEDS ORDERED: ONDANSETRON4 MG SL (22:08)
[2022-10-20] MEDS ORDERED: MACROBID100 M1 PO (22:12)
== END 2022-10-20 22:21 | disposition home or self-care (01) ==
LOC: ED 18:45
PROVIDERS: Nurse Practitioner Family
DX: R11.2 Nausea with vomiting, unspecified (principal); R19.7 Diarrhea, unspecified; N39.0 Urinary tract infection, site not specified; E11.9 Type 2 diabetes mellitus without complications; Z79.4 Long term (current) use of insulin; F32.A Depression, unspecified; F41.9 Anxiety disorder, unspecified; E78.00 Pure hypercholesterolemia, unspecified; Z98.890 Other specified postprocedural states

== ENCOUNTER → 2022-11-04 | Day surgery (SDC) | payer OTHER ==
[2022-10-31 13:24] VITALS: BP 154/73
[2022-11-04] VITALS (7 sets, daily range): BP systolic 120–168; BP diastolic 63–87
[~2022-11-04] VITALS: Ht 172.7 cm; Wt 81.6 kg
[~2022-11-04] MED LIST changes: +HYDROCODONE-AC1 EAC1 PO; +ONDANSETRON HYDR4 M1 PO; +ONDANSETRON4 MG SL
== END ==
LOC: SDC 10-31 13:15
PROVIDERS: ATTEND Surgery
DX: K81.1 Chronic cholecystitis (principal); K29.50 Unspecified chronic gastritis without bleeding; K82.8 Other specified diseases of gallbladder; E11.9 Type 2 diabetes mellitus without complications; I25.10 Atherosclerotic heart disease of native coronary artery without angina pectoris; E78.00 Pure hypercholesterolemia, unspecified; E03.9 Hypothyroidism, unspecified; F41.9 Anxiety disorder, unspecified; K64.8 Other hemorrhoids; Z79.899 Other long term (current) drug therapy; Z98.890 Other specified postprocedural states

== ENCOUNTER 2023-03-23 17:40 | Emergency (ER) | payer OTHER ==
[~2023-03-23] VITALS: Ht 165.1 cm; Wt 86.2 kg
[2023-03-23 18:29] LABS: BASO # 0.1 10*3/uL (0.0-0.1); BASO % 0.5 % (0.0-1.0); EOS # 0.2 10*3/uL (0.0-0.4); EOS % 2.5 % (1.0-4.0); HEMATOCRIT 43.2 % (37.0-47.0); LYMPH # 3.1 10*3/uL (1.3-4.4); LYMPH % 31.7 % (27.0-41.0); MEAN CELL VOLUME 85.5 fl (81.0-99.0); MEAN CORPUSCULAR HGB 29.7 pg (27.0-31.0); MEAN CORPUSCULAR HGB CONC 34.7 g/dl (33.0-37.0); MONO # 0.9 10*3/uL (0.1-1.0); MONO % 9.1 % (3.0-9.0); NEUT # 5.4 10*3/uL (2.3-7.9); NEUT % 55.9 % (47.0-73.0); PLATELET COUNT AUTOMATED 302 10*3/uL (130-400); RED BLOOD COUNT 5.05 10*6/uL (4.10-5.10); RED CELL DISTRI WIDTH 12.5 % (0-14.5); WHITE BLOOD COUNT 9.7 10*3/uL (4.8-10.8)
[2023-03-23 18:39] LABS: BILIRUBIN Negative (Negative); BLOOD Negative (Negative); CLARITY Clear (Clear); COLOR Yellow (Yellow); GLUCOSE 3+ (Negative); KETONE Negative (Negative); LEUKO ESTERASE Trace (Negative); NITRITE Negative (Negative); PH 5.5 (4.5-8.0); SPECIFIC GRAVITY >= 1.030 (1.001-1.030)
[2023-03-23 18:50] LABS: ALKALINE PHOSPHATASE 57 U/L (46-116); BUN 10 mg/dl (9-23); CHLORIDE 105 mmol/L (98-107); POTASSIUM 3.9 mmol/L (3.4-5.1); SGPT/ALT 13 U/L (5-49); TOTAL PROTEIN 6.8 gm/dL (6.0-8.0)
[2023-03-23 19:16] LABS: BACTERIA 3+; WBC 16-20 wbc/hpf (0-5)
[2023-03-23] MEDS ORDERED: CEPHALEXIN500 M1 PO (21:36)
[2023-03-23] MEDS ORDERED: MELOXICAM7.5 MG PO (21:36)
[2023-03-23 22:20] VITALS: BP 136/74
== END 2023-03-23 22:24 | disposition home or self-care (01) ==
LOC: ED 17:40
PROVIDERS: Nurse Practitioner
DX: N30.90 Cystitis, unspecified without hematuria (principal); E11.9 Type 2 diabetes mellitus without complications; Z79.4 Long term (current) use of insulin; F32.A Depression, unspecified; F41.9 Anxiety disorder, unspecified; E78.00 Pure hypercholesterolemia, unspecified; Z95.5 Presence of coronary angioplasty implant and graft; Z98.890 Other specified postprocedural states

== ENCOUNTER → 2023-10-30 | Outpatient (CLI) | payer OTHER ==
[~2023-10-30] MED LIST changes: +CEPHALEXIN500 M1 PO; +MELOXICAM7.5 MG PO
[2023-10-30 09:20] LABS: ALKALINE PHOSPHATASE 65 U/L (46-116); BUN 7 mg/dl (9-23); CHLORIDE 102 mmol/L (98-107); CHOLESTEROL 211 mg/dL (<200); FREE T4 0.99 ng/dl (0.89-1.76); LDL CHOLESTEROL 142 mg/dL (9-159); SGPT/ALT 14 U/L (5-49); TOTAL PROTEIN 7.4 gm/dL (6.0-8.0); TRIGLYCERIDES 99 mg/dl (<150)
== END | disposition home or self-care (01) ==
LOC: MAMMO 07:30 → LAB 07:30
PROVIDERS: ATTEND Clinical Nurse Specialist
DX: Z12.31 Encounter for screening mammogram for malignant neoplasm of breast (principal); R92.333 Mammographic heterogeneous density, bilateral breasts; E11.65 Type 2 diabetes mellitus with hyperglycemia; Z79.4 Long term (current) use of insulin

== ENCOUNTER → 2023-12-02 | Outpatient (CLI) | payer OTHER ==
[~2023-12-02] MED LIST changes: -ATORVASTATIN CA20 M1 PO; +HUMALOG OMNIPOD SQ; +LIPITOR40 MG PO; +TOPCARE OMEPRAZ20 MG PO
== END | disposition home or self-care (01) ==
LOC: CARD 01:54
PROVIDERS: ATTEND Internal Medicine Cardiovascular Disease
DX: R06.02 Shortness of breath (principal); I25.10 Atherosclerotic heart disease of native coronary artery without angina pectoris; E11.65 Type 2 diabetes mellitus with hyperglycemia; Z95.5 Presence of coronary angioplasty implant and graft

== ENCOUNTER → 2024-06-01 | Outpatient (CLI) | payer OTHER ==
[2024-06-01 08:45] LABS: ALKALINE PHOSPHATASE 56 U/L (46-116); BUN 11 mg/dl (9-23); CHLORIDE 107 mmol/L (98-107); CHOLESTEROL 192 mg/dL (<200); FREE T4 1.03 ng/dl (0.89-1.76); LDL CHOLESTEROL 135 mg/dL (9-159); POTASSIUM 4.3 mmol/L (3.4-5.1); TOTAL PROTEIN 7.2 gm/dL (6.0-8.0); TRIGLYCERIDES 90 mg/dl (<150)
[2024-06-01 08:56] LABS: SGPT/ALT < 7 U/L (5-49)
[2024-06-02 02:06] LABS: HEMOGOLBIN A1C 7.7 % (4.8-5.6)
== END | disposition home or self-care (01) ==
LOC: LAB 07:55
PROVIDERS: Student in an Organized Health Care Education/Training Program; ATTEND Internal Medicine Endocrinology, Diabetes & Metabolism
DX: E10.65 Type 1 diabetes mellitus with hyperglycemia (principal)

== ENCOUNTER 2024-11-19 13:54 | Inpatient (IN) | payer OTHER ==
[2024-11-19] VITALS (8 sets, daily range): BP systolic 125–158; BP diastolic 54–69
[~2024-11-19] VITALS: Ht 170.1 cm; Wt 94.4 kg
[~2024-11-19 13:54] MED LIST changes: -OZEMPIC1 MG/0.75 SQ; +OZEMPIC2 MG/0.71 SQ
[2024-11-19] MEDS ORDERED: Ondansetron Hydrochloride 4 MG/2 ML VIAL IV ONE ×2 (14:25→21:04)
[2024-11-19] MEDS ORDERED: SODIUM CHLORIDE 0.9% 1,000 ML IV ONE ×2 (14:25→18:05)
[2024-11-19] MEDS ORDERED: fentaNYL CITRATE/PF 50 MCG/ML SYRINGE IV ONE (14:25)
[2024-11-19 14:51] LABS: BASO # 0.1 10*3/uL (0.0-0.1); BASO % 0.5 % (0.0-1.0); EOS # 0.2 10*3/uL (0.0-0.4); EOS % 2.1 % (1.0-4.0); MEAN CELL VOLUME 89.3 fl (81.0-99.0); MEAN CORPUSCULAR HGB 28.7 pg (27.0-31.0); MEAN PLATELET VOLUME 10.0 fl (9.6-12.3); MONO # 1.0 10*3/uL (0.1-1.0); MONO % 10.7 % (3.0-9.0); NEUT # 5.1 10*3/uL (2.3-7.9); NEUT % 55.7 % (47.0-73.0); NUCLEATED RED BLOOD CELL 0.0 % (0.0-0.0); NUCLEATED RED BLOOD CELL 0.0 10*3/uL (0.0-0.0); PLATELET COUNT AUTOMATED 278 10*3/uL (130-400); RED CELL DISTRI WIDTH 12.7 % (0-14.5)
[2024-11-19 15:14] LABS: BUN 12 mg/dl (9-23); SGPT/ALT 12 U/L (5-49)
[2024-11-19] MEDS ORDERED: IOHEXOL 300 MG/ML 100 ML VIAL IV ONE (16:05)
[2024-11-19] MEDS ORDERED: INSULIN LI100 UNIT/1 SQ (17:26)
[2024-11-19] MEDS ORDERED: OMNIPOD 5 G6 P1 EAC1 SQ (17:26)
[2024-11-19] MEDS ORDERED: DEXCOM G7 SENS1 EACH MC (17:26)
[2024-11-19] MEDS ORDERED: ACETAMINOPHEN 325 MG TAB PO PRN (17:55)
[2024-11-19] MEDS ORDERED: BISACODYL 5 MG TAB PO PRN (17:55)
[2024-11-19] MEDS ORDERED: Ondansetron Hydrochloride 4 MG/2 ML VIAL IV PRN (17:55)
[2024-11-19] MEDS ORDERED: Acetaminophen/Hydrocodone 5 MG/325 MG TABLET PO PRN (17:55)
[2024-11-19] MEDS ORDERED: ACETAMINOPHEN 650 MG SUPP R PRN (17:55)
[2024-11-19] MEDS ORDERED: BISACODYL 10 MG SUPP R PRN (17:55)
[2024-11-19] MEDS ORDERED: ACETAMINOPHEN 100 ML IV ONE (19:20)
[2024-11-19] MEDS ORDERED: SODIUM CHLORIDE 0.9% 100 ML IV ONE (19:20)
[2024-11-19] MEDS ORDERED: Lactated Ringer's Solution 1,000 ML IV ONE (19:20)
[2024-11-19] MEDS ORDERED: ceFAZolin sodium/sodium chlor 20 ML IV ONE (19:41)
[2024-11-19] MEDS ORDERED: GLYCOPYRROLATE IN WATER/PF 0.4 MG/2 ML SYRINGE IV ONE (21:04)
[2024-11-19] MEDS ORDERED: SUGAMMADEX SODIUM 200 MG/2 ML VIAL IV ONE (21:04)
[2024-11-19] MEDS ORDERED: Midazolam Hydrochloride 2 MG/2 ML VIAL IV ONE (21:04)
[2024-11-19] MEDS ORDERED: ROCURONIUM BROMIDE 50 MG/5 ML SYRINGE IV ONE (21:04)
[2024-11-19] MEDS ORDERED: SEVOFLURANE 250 ML BOT INH ONE (21:04)
[2024-11-19] MEDS ORDERED: Lidocaine Hydrochloride 5 ML VIAL IV ONE (21:04)
[2024-11-19] MEDS ORDERED: Dexamethasone Sodium Phospha 4 MG/ML VIAL IV ONE (21:04)
[2024-11-19] MEDS ORDERED: PROPOFOL 200 MG/20 ML VIAL IV ONE (21:04)
[2024-11-20] MEDS ORDERED: Benzocaine/Menthol 1 LOZ LOZENGE PO PRN (01:40)
[2024-11-20 06:20] LABS: BUN 9 mg/dl (9-23); SGPT/ALT 12 U/L (5-49)
[2024-11-20] MEDS ORDERED: ROSUVASTATIN CA40 MG PO (06:27)
[2024-11-20] MEDS ORDERED: Synthroid,Lev200 MCG PO (06:28)
[2024-11-20 06:32] LABS: BASO # 0.0 10*3/uL (0.0-0.1); BASO % 0.2 % (0.0-1.0); EOS # 0.0 10*3/uL (0.0-0.4); EOS % 0.0 % (1.0-4.0); MEAN CELL VOLUME 87.5 fl (81.0-99.0); MEAN CORPUSCULAR HGB 29.2 pg (27.0-31.0); MEAN PLATELET VOLUME 10.5 fl (9.6-12.3); MONO # 0.7 10*3/uL (0.1-1.0); MONO % 6.6 % (3.0-9.0); NEUT # 9.0 10*3/uL (2.3-7.9); NEUT % 79.5 % (47.0-73.0); NUCLEATED RED BLOOD CELL 0.0 % (0.0-0.0); NUCLEATED RED BLOOD CELL 0.0 10*3/uL (0.0-0.0); PLATELET COUNT AUTOMATED 288 10*3/uL (130-400); RED CELL DISTRI WIDTH 12.6 % (0-14.5)
[2024-11-20 08:00] VITALS: BP 134/63
[2024-11-20] MEDS ORDERED: LORazepam 0.5 MG TAB PO PRN (08:10)
[2024-11-20 08:12] LABS: VITAMIN D, 25-HYDROXY 32.6 ng/mL (30-100)
[2024-11-20] MEDS ORDERED: TICAGRELOR 90 MG TABLET PO SCH (10:00)
[2024-11-20] MEDS ORDERED: ASPIRIN, CHEWABLE 81 MG TAB PO SCH (10:00)
[2024-11-20] MEDS ORDERED: CARVEDILOL 6.25 MG TAB PO SCH (10:00)
[2024-11-20] MEDS ORDERED: HYDROCODONE-AC1 EAC1 PO (11:58)
[2024-11-20 12:00] VITALS: BP 121/55
[2024-11-20] MEDS ORDERED: UBIDECARENONE 100 MG PO SCH (22:00)
[2024-11-20] MEDS ORDERED: ATORVASTATIN CALCIUM 80 MG TAB PO SCH (22:00)
== END 2024-11-20 13:30 | disposition home or self-care (01) | DRG 399 ==
LOC: ED 13:54 → EDHOLD 17:18 → 5E 19:13
PROVIDERS: Nurse Practitioner Family; ADMIT Internal Medicine; ATTEND Internal Medicine
PROC: 0DTJ4ZZ Resection of Appendix, Percutaneous Endoscopic Approach (ICD-10-PCS; principal; 2024-11-19)
DX: K35.30 Acute appendicitis with localized peritonitis, without perforation or gangrene (principal); E03.9 Hypothyroidism, unspecified; E78.5 Hyperlipidemia, unspecified; F32.9 Major depressive disorder, single episode, unspecified; K59.00 Constipation, unspecified; E11.65 Type 2 diabetes mellitus with hyperglycemia; E66.811 Obesity, class 1; Z98.891 History of uterine scar from previous surgery; Z82.49 Family history of ischemic heart disease and other diseases of the circulatory system; Z83.3 Family history of diabetes mellitus; Z79.899 Other long term (current) drug therapy; Z79.2 Long term (current) use of antibiotics; Z79.4 Long term (current) use of insulin; Z68.32 Body mass index [BMI] 32.0-32.9, adult

== ENCOUNTER 2025-02-14 16:12 | Emergency (ER) | payer OTHER ==
[~2025-02-14] VITALS: Ht 170.1 cm; Wt 90.7 kg
[~2025-02-14 16:12] MED LIST changes: +DEXCOM G7 SENS1 EACH MC; +INSULIN LI100 UNIT/1 SQ; +OMNIPOD 5 G6 P1 EAC1 SQ; +ROSUVASTATIN CA40 MG PO; +Synthroid,Lev200 MCG PO
[2025-02-14 16:27] VITALS: BP 141/73
[2025-02-14] MEDS ORDERED: IOHEXOL 350 MG/ML 100 ML VIAL IV ONE ×2 (17:35→17:57)
[2025-02-14] MEDS ORDERED: SODIUM CHLORIDE 0.9% 100 ML BAG IV ONE (17:35)
[2025-02-14] MEDS ORDERED: SODIUM CHLORIDE 0.9% 100 ML IV ONE (17:57)
== END 2025-02-14 18:47 | disposition home or self-care (01) ==
LOC: ED 16:12
DX: R20.2 Paresthesia of skin (principal); R20.0 Anesthesia of skin; Z98.890 Other specified postprocedural states